=== PATIENT | male | born 2005 ===

== ENCOUNTER → 2025-01-21 | Emergency (ER) | payer OTHER ==
[~2025-01-21] VITALS: Ht 170.2 cm; Wt 68.0 kg
[~2025-01-21] MED LIST: CEPH500 PO
== END ==
LOC: ER 11:09
DX: S61.215A Laceration without foreign body of left ring finger without damage to nail, initial encounter (principal); W26.8XXA Contact with other sharp object(s), not elsewhere classified, initial encounter
CPT/HCPCS: 12001; 99282-25